=== PATIENT | female | born 1970 | race Caucasian/White ===

== ENCOUNTER 2018-12-11 21:03 | Emergency (ER) | payer MEDICARE, SELFPAY ==
[2018-12-11 21:11] VITALS: BP 168/105; PULSE 82; RESP 24; TEMP 36.2; O2SAT 97
--- NOTE | 2018-12-11 21:13 | W.ED.GENAD ---
Discharge Plan Disposition Patient Disposition: HOME Condition: Improving Discharge Details Chief Complaint: Headache Clinical Impression: Migraine Primary Care Provider: AndressaLocal ED Provider: Jadon Will Home Meds and New Rx's Prescriptions: Continued topiramate [Topamax] 200 mg Tablet 400 mg PO QHS RF: 0 diphenhydramine-acetaminophen [Tylenol PM Extra Strength] 25-500 mg Tablet 2 tab PO PRN PRNRF: 0 Discharge Instructions Instructions: Acute Headache (ED) Additional Instructions: Home to rest this evening. May use the provided hydrocodone if needed for severe/breakthrough pain. You have recurrent headache tomorrow take 800 mg of ibuprofen and liberal amounts of fluids to hydrate. May take an additional hydrocodone if needed. Return if develop a fever, vomiting, worsening headache or any other acute concerns. Follow-up with your regular doctor upon your return home to [place] for recheck Discharge Data Discharge Date/Time-TO BE ENTERED AT DEPARTURE: 12/11/18 23:25 Medical Decision Making 48-year-old female migraineur who was at a family reunion in this area from her home in [facility]. Presents with rapid onset of 2 hours of frontal, global headache associated photophobia, phonophobia, nausea. No fall or injury. Notes that she has not taken her Topamax for migraines for 2 days. She is afebrile, mildly hypertensive 168/105, anxious and in distress. Differential diagnosis would include migraine, intracranial hemorrhage or mass. IV access established, patient given fluids, parenteral analgesic, antiemetic. Referred for CT scan of the head Imaging without evidence of acute finding per radiology report. Patient with correction of BP to 133/88. Improved, tolerating p.o., stating I feel better. Consistent with migraine type headache. She is visiting from out of state. Will provide her 3 hydrocodone's to be used as needed for severe pain. I did consent her for the use of narcotic. She is stable and improved, appropriate for discharge home. Discussed with her return precautions. HPI General Mode of arrival: ambulatory. Date/Time Provider Initiated Documentation: 12/11/18 21:05. Limitations to Documentation: no limitations. Information obtained by: patient. History of Present Illness 48 year old F presents to the emergency department with the chief complaint of Headache for 2hrs, ran out of migraine medicine, described as moderate and severe, Quality is described as constant, and is localized to the head. Patient reports no radiation. Patient started experiencing this hour(s) and it has been constant. No relieving factors improve symptom(s), Other factors that worsen symptoms (Light and smell) . Patient notes headaches and other (Nauseated); denies fever/chills. Patient did receive the following treatments prior to arrival, none Related Data Home Medications Medication Instructions Recorded Confirmed diphenhydramine-acetaminophen 2 tab PO PRN PRN 12/11/18 12/11/18 [Tylenol PM Extra Strength] topiramate [Topamax] 400 mg PO QHS 12/11/18 12/11/18 Allergies Allergy/AdvReac Type Severity Reaction Status Date / Time No Known Allergies Allergy Unverified 12/11/18 21:16 Review of Systems Review of Systems Lives in [facility], visiting family here. Forgot her Topamax at home that she takes for migraine. [facility] Medical History (Updated 12/11/18 @ 21:15 by Lori Hagan) Herniated disc (Acute) Migraine (Chronic) Social History Smoking/Tobacco Use Status: Never Alcohol Intake: current Alcohol Intake frequency: holidays/special occasions only Drug use: Never Substance use type: does not use Additional Social history: pt is not alone to assess privately Exam Narrative Exam Narrative: GEN: awake, alert, in distress, anxious and hyperventilating. HEAD: Normocephalic, atraumatic ENT: Mucous membranes moist, oropharynx unremarkable, External ear exam unremarkable EYES: PERRL, EOMI NECK: Full ROM, no AMANDA, no menigismus CHEST/RESP: Nontender, clear to auscultation bilateral, no wheeze/rhonchi/rales CARDIOVASCULAR: RRR, no murmur, rub linden. 2+ Rad pulse bilateral ABDOMEN: Soft, nontender, no mass. +Bowel sounds EXT: Full ROM, no edema, no rash Neuro: Grossly normal neurologic exam, conversant, interactive. Psych: Speech fluent, thoughts congruent, affect anxious
[2018-12-11 21:24] LABS: Abs Immature Grans 0.02 k/cumm (0.0-0.09); Absolute Basophil Count 0.08 k/cumm (0.0-0.2); Absolute Eosinophil Count 0.18 k/cumm (0.0-0.7); Absolute Lymphocyte Count 2.04 k/cumm (1.2-3.4); Absolute Monocyte Count 0.48 k/cumm (0.11-0.7); Absolute Neutrophil Count 6.05 k/cumm (1.2-6.7); Basophils % 0.9; HCT 38.7 % (36.0-46.0); HGB 13.2 g/dL (12.0-15.5); Immature Grans % 0.2; Lymphocytes % 23.1; Mean Corp. HGB Concentration 34.1 g/dL (32.0-36.0); Mean Corpuscular Hemoglobin 29.5 pg (27.0-33.0); Mean Corpuscular Volume 86.6 fL (80-95); Mean Platelet Volume 9.5 fL (8.0-11.0); Monocytes % 5.4; Neutrophils % 68.4; Platelet Count 333 x1000/uL (130-400); RBC 4.47 m/cumm (4.00-5.20); RBC Distribution Width 13.4 % (11.7-14.6); White Blood Cell Count 8.85 k/cumm (4.4-10.8)
[2018-12-11] MEDS: HYDROmorphone 2 MG/ML VIAL 1 MG IVP (21:24)
[2018-12-11] MEDS: Normal Saline 1,000 ML 1000 ML IV (21:25)
[2018-12-11] MEDS: Ondansetron 4 MG/2 ML VIAL IVP (21:26)
[2018-12-11 21:35] LABS: PTT Activated 24.2 sec (21.0-31.4); Prothrombin Time 9.7 sec (9.3-11.0)
[2018-12-11] MEDS: LORazepam 2 MG/ML VIAL 1 MG IVP (21:35)
[2018-12-11] MEDS: Dexamethasone 10 MG/ML VIAL IVP (21:35)
[2018-12-11 21:36] LABS: ALT 62 U/L (12-78); AST 23 U/L (15-37); Albumin 4.9 g/dL (3.4-5.0); Alkaline Phosphatase 91 U/L (46-116); Anion Gap 12.3 mmol/L (3-11); BUN 13 mg/dL (7-18); Bilirubin, Total 0.4 mg/dL (0.2-1.0); CO2 26.7 mmol/L (21.0-32.0); CREATININE 0.76 mg/dL (0.55-1.02); Chloride 102 mmol/L (98-107); Glucose 124 mg/dL (70-100); Potassium 4.1 mmol/L (3.5-5.1); Sodium 141 mmol/L (136-145); Total Protein 8.5 g/dL (6.4-8.2)
--- NOTE | 2018-12-11 21:55 | DI.CT_ITS ---
SYMPTOM/DIAGNOSIS; HEADACHE CRANIAL CT 12/[address] was performed. Ventricular system is normal in appearance. There are patchy areas of decreased attenuation and periventricular white matter most consistent with microvascular ischemic changes. There is question of an area of decreased attenuation in the right temporal lobe and also in left occipital lobe, while these may represent microvascular ischemic change there is some question of cortical extension and the possibility of acute or subacute infarction is not excluded. Correlation with brain MRI recommended. No evidence of acute intracranial hemorrhage, mass effect or midline shift. The visualized paranasal sinuses and mastoid air cells appear clear. The orbital and temporal bone structures appear intact. CONCLUSION: Questionable findings involving right temporal and left occipital lobes, MRI recommended to exclude acute or subacute infarction. No evidence of intracranial hemorrhage. The findings were discussed with Dr. Severo Jacob of the Emergency Department.
[2018-12-11] MEDS: Ketorolac 30 MG/ML VIAL IVP (22:06)
[2018-12-11] MEDS: diphenhydrAMINE 50 MG/ML VIAL 25 MG IVP (22:06)
--- NOTE | 2018-12-11 22:09 | DI.VRAD_ITS ---
EXAM: CT Head Without Contrast EXAM DATE/TIME: 12/11/2018 9:10 PM CLINICAL HISTORY: 48 years old, female; Pain; Headache not specified; Patient HX: Headache starting in forehead area and down into and behind left ear and neck; Additional info: HX of recent dental surgery TECHNIQUE: Imaging protocol: Computed tomography images of the head without contrast. Coronal and sagittal reformatted images were created and reviewed. Radiation optimization: All CT scans at this facility use at least one of these dose optimization techniques: automated exposure control; mA and/or kV adjustment per patient size (includes targeted exams where dose is matched to clinical indication); or iterative reconstruction. COMPARISON: No relevant prior studies available. FINDINGS: Brain: Typical for age. No hemorrhage. No evidence of acute infarct. No mass. Ventricles: No ventriculomegaly. Bones/joints: Unremarkable. Sinuses: No sinus fluid. Mastoid air cells: Unremarkable. Soft tissues: Unremarkable. IMPRESSION: No acute intracranial abnormality. Dictated and Authenticated by: Gino Aj MD. Ordering:SALLY Diop MD
[2018-12-11] MEDS: HYDROmorphone 2 MG/ML VIAL 0.5 MG IVP (22:37)
[2018-12-11 22:38] VITALS: BP 133/88; PULSE 97; RESP 20; TEMP 36.6; O2SAT 97
[2018-12-11 23:13] VITALS: BP 109/89; PULSE 95; RESP 16; O2SAT 97
[2018-12-11] MEDS: HYDROcodone 5/Acetaminophen 325 TAB PO (23:17)
== END 2018-12-11 23:25 | disposition home or self-care (01) ==
PROVIDERS: Emergency Provider Emergency Medicine
DX: G43.909 Migraine, unspecified, not intractable, without status migrainosus (principal); I10 Essential (primary) hypertension
CPT/HCPCS: 36415; 80053; 96361; 96374; 96375; 96376; 99284; 70450; 85025; 85610; 85730; J1100; J1200; J1885; J2060; J2405

== ENCOUNTER 2018-12-12 13:03 | Emergency (ER) | payer MEDICARE, SELFPAY ==
[2018-12-12 13:10] VITALS: BP 134/93; PULSE 118; RESP 16; TEMP 36.6; O2SAT 96
--- NOTE | 2018-12-12 13:40 | ED.GENADUL_ITS ---
Discharge Plan Disposition Patient Disposition: HOME Discharge Details Chief Complaint: Headache Clinical Impression: Headache Primary Care Provider: Andressa,Local ED Provider: Severo Jacob Home Meds and New Rx's Prescriptions: No Action topiramate [Topamax] 200 mg Tablet 400 mg PO QHS RF: 0 diphenhydramine-acetaminophen [Tylenol PM Extra Strength] 25-500 mg Tablet 2 tab PO PRN PRNRF: 0 Discharge Instructions Instructions: General Headache (ED) Additional Instructions: Please contact your primary care physician to arrange follow-up. Call today to arrange timely follow-up. Take your medication as prescribed. Return to the ER for any worsening or new concerning symptoms. Discharge Data Discharge Date/Time-TO BE ENTERED AT DEPARTURE: 12/12/18 16:54 Medical Decision Making <Severo Jacob MD - Last Filed: 12/24/18 09:02> 13:54 --48-year-old female with history of migraine headaches, seen here yesterday for headache after running out of her Topamax, had CT of the head which was initially read as negative, over read today by radiology notes questionable findings involving right temporal and left occipital lobes, MRI recommended by radiology to exclude acute or subacute infarct. Patient notes she has had persistent headache since yesterday although it was much improved this morning, headache now returned after hearing of need to return to the emergency department. I suspect anxiety is contributing to patient's current condition. I will give Ativan 1 mg orally which patient has consented to. Patient also has some associated nausea. I will give Zofran 4 mg IV. Plan to obtain MRI of the brain. I called and spoke with Dr. Simon about patient's presentation and course here in the emergency department and he recommended MRI brain without contrast. Patient has negative meningeal signs but does note some neck stiffness. I think it highly unlikely that she had a subarachnoid hemorrhage given negative CT head within 2 hours of onset of pain yesterday. Plan to reassess after MRI. -- MRI interpreted by radiology: negative, no infarct, no hemorrhage. I spoke with patient about results. I explained limitations of imaging for ruling out hemorrhage and I discussed risk/benefits of lumbar puncture - patient provided informed refusal of LP. Patient has decisional making capacity. Patient consents to occipital block. Occipital block performed by me. Will also give toradol 15mg IV. -- Patient reassessed: pain improved. Patient re-examined and remains neuro intact. No papilledema on exam. Again discussed LP benefits and risk and and patient again gave informed refusal. Patient requested home dose of topamax as she is here visiting and dose not have her medication with her and will not be home until tomorrow. Confirmed dose 400mg nightly. HPI <Severo Jacob MD - Last Filed: 12/24/18 09:02> General Mode of arrival: ambulatory . Date/Time Provider Initiated Documentation: 12/12/18 13:05 . Limitations to Documentation: no limitations . Information obtained by: patient . HPI Narrative: 48-year-old female with history of migraine headaches here after being called back to the emergency department for abnormal findings on CT of the head. Patient was seen here yesterday for severe headache that it started about 2 hours prior to arrival. Patient was noted to have run out of her migraine medication. Pain yesterday was described as rapid onset, frontal headache with associated photophobia, phonophobia and nausea. She was noted to be anxious and in distress. Patient received parenteral analgesia, antiemetic and IV fluids. She had a CT of the h ead that was interpreted by radiology as no acute intracranial abnormality. Pain was noted to be typical for age with no hemorrhage. Patient improved while in the department and was diagnosed with migraine type headache and discharged home in stable and improved condition. I received call from radiologist this morning who over read the initial CT of the head as questionable findings involving right temporal and left occipital lobe, and MRI was recommended to exclude acute or subacute infarct. There was no evidence of intracranial hemorrhage again noted. I called the patient and left message for her to return to the emergency department for further diagnostic testing. Upon hearing results of CT scan, patient became quite anxious and was noted to have again worsening headache. Pain is localized to right ear and frontal head. Pain is moderate to severe and not as severe as yesterday. She has associated anxiety at this time. No associated numbness or weakness. No fevers. No neck stiffness. Related Data Home Medications Medication Instructions Recorded Confirmed diphenhydramine-acetaminophen 2 tab PO PRN PRN 12/11/18 12/12/18 [Tylenol PM Extra Strength] topiramate [Topamax] 400 mg PO QHS 12/11/18 12/12/18 Allergies Allergy/AdvReac Type Severity Reaction Status Date / Time No Known Allergies Allergy Unverified 12/11/18 21:16 General Stated Complaint: Headache YESIKA: 3 Review of Systems <Severo Jacob MD - Last Filed: 12/24/18 09:02> Review of Systems All systems reviewed & are unremarkable except as noted in HPI and below Constitutional Denies fever(s), Reports headache(s) and Denies weakness Eyes Denies blurry vision, Denies diplopia and Denies floaters ENT Reports as per HPI, Denies dizziness, Reports headache(s), Denies disequilibrium and Denies sinus pain Cardiovascular Denies syncope Gastrointestinal Reports nausea Musculoskeletal Denies numbness Neurologic Denies abnormal speech, Denies dizziness, Denies syncope, Reports headache(s), Denies numbness, Denies disequilibrium and Denies weakness PFSH <Severo Jacob MD - Last Filed: 12/24/18 09:02> Medical History Herniated disc (Acute) Migraine (Chronic) Social History Smoking/Tobacco Use Status: Never Alcohol Intake: current Alcohol Intake frequency: holidays/special occasions only Drug use: Never Substance use type: does not use Do you feel safe at home: Yes Do you feel safe in your relationship?: Yes Additional Social history: pt is not alone to assess privately Exam <Severo Jacob MD - Last Filed: 12/24/18 09:02> Const General: cooperative and no acute distress HENMT Head: normocephalic and atraumatic Mouth: moist mucous membranes Throat: posterior oropharynx normal Eyes Conjunctivae: normal conjunctivae Sclera: normal sclerae EOM: EOM intact bilaterally Neck Neck: full ROM, trachea midline, supple, negative Brudzinski's sign, negative Kernig's sign and No submandibular swelling Lymphatic: no lymphadenopathy noted Resp Auscultation: clear to auscultation bilaterally, no rales, no rhonchi and no wheezes Cardio Jugular venous pressure: no JVD Rate: tachycardic Rhythm: regular rhythm GI Palpation: soft, not firm, no guarding, no masses, not rigid and nontender Skin General skin exam: no rashes or lesions noted Neuro General: alert, awake, oriented x3 and tone normal Cranial Nerves: CN's II-XI intact bilaterally, PERRL and tongue midline Speech: speech normal Motor: strength 5/5 throughout Sensory Exam: no sensory deficits noted Extrem General: no edema Psych Appearance: grossly normal Mental Status: mental status grossly normal Speech and Movement: speech and movement normal Course <Severo Jacob MD - Last Filed: 12/24/18 09:02> Vital Signs Temperature 36.6 C 12/12/18 13:10 Pulse 118 H 12/12/18 13:10 Respiratory Rate 16 12/12/18 13:10 Blood Pressure 134/93 H 12/12/18 13:10 Pulse Oximetry 96 12/12/18 13:10 Temperature 36.6 C 12/12/18 13:10 Temperature Source Temporal Artery Scan 12/12/18 13:10 Pulse 118 H 12/12/18 13:10 Respiratory Rate 16 12/12/18 13:10 Respiratory Effort 12/12/18 13:19 Blood Pressure 134/93 H 12/12/18 13:10 Blood Pressure Position Supine 12/12/18 13:10 Pulse Oximetry 96 12/12/18 13:10 Oxygen Delivery Method Room Air 12/12/18 13:10 Oxygen Flow Rate 0 12/12/18 13:10 Pain Level 6 12/12/18 13:19 Procedures <Severo Jacob MD - Last Filed: 12/24/18 09:02> Nerve Block Nerve Block 1: Local Anesthetic: Lidocaine 1% (2ml) and Bupivicaine 0.5% (2ml) Amount of anesthesia used (mL): 4 Side: left and right Nerve Blocks: occipital Procedure Successful: Yes Patient Tolerated Procedure: well Complications: none
[2018-12-12 14:01] VITALS: BP 135/87; PULSE 97; PULSE 99; RESP 27; O2SAT 84
[2018-12-12 14:02] VITALS: PULSE 100; RESP 19; O2SAT 95
[2018-12-12] MEDS: LORazepam 1 MG TAB PO (14:10)
[2018-12-12] MEDS: Ondansetron 4 MG/2 ML VIAL IVP (14:10)
--- NOTE | 2018-12-12 15:27 | DI.MRI_ITS ---
SYMPTOMS/DIAGNOSIS: HEADACHE, ABNORMAL CT BRAIN MRI: MR examination of the brain was performed according to the usual protocol. Ventricular system is normal in appearance. No significant signal abnormality identified in the brain, a few questionable small focal areas of abnormal signal are noted in periventricular white matter consistent with mild microvascular ischemic changes. Diffusion weighted imaging shows no evidence of infarction. Susceptibility weighted imaging shows no evidence of hemorrhage. The orbital and temporal bone structures appear intact, as does the pituitary. There is unremarkable flow void in the [place] of [place] vasculature. CONCLUSION: Brain MRI essentially normal for age.
[2018-12-12] MEDS: Ketorolac 15 MG/ML VIAL IVP (15:58)
[2018-12-12] MEDS: Bupivacaine 0.5% Pres-Free 30 ML VIAL IJ (15:59)
[2018-12-12] MEDS: Lidocaine 1% Multi-Dose 50 ML VIAL IJ (15:59)
[2018-12-12 16:43] VITALS: BP 118/75; PULSE 104; RESP 16; TEMP 37.1; O2SAT 94
[2018-12-12] MEDS: Topiramate 100 MG TAB 400 MG PO (16:55)
--- NOTE | 2018-12-12 16:55 | NUR.NOTE ---
Nursing Note: Per MD Jacob order, Pt given 400mg of Topamax to go home with for night time dose.
== END 2018-12-12 16:54 | disposition home or self-care (01) ==
PROVIDERS: Emergency Provider Student in an Organized Health Care Education/Training Program
DX: R51 Headache (principal); R11.0 Nausea; F41.9 Anxiety disorder, unspecified
CPT/HCPCS: 96374; 96375; 99284; 70551; J1885; J2405